=== PATIENT | female | born 1965 | race Two or more races ===

== ENCOUNTER 2020-08-05 06:41 | Day surgery (SDC) | payer OTHER ==
[~2020-08-05 06:41] MED LIST: AMLODI PO; COZAAR100 MG PO; LOVENOX30 MG/0.3 SUBCUTANEO
[2020-08-05] MEDS ORDERED: OXYC1TAB9 PO (13:18)
[2020-08-05] MEDS ORDERED: DUI500 PO (13:18)
== END 2020-08-05 16:30 | disposition home or self-care (01) ==
LOC: CIR.AMB 06:41
PROVIDERS: ATTEND Orthopaedic Surgery Sports Medicine
DX: S82.853B Displaced trimalleolar fracture of unspecified lower leg, initial encounter for open fracture type I or II (principal); Z20.822 Contact with and (suspected) exposure to COVID-19